=== PATIENT | female | born 1955 | race Caucasian/White ===

== ENCOUNTER 2016-11-10 22:26 | Observation (INO) | payer OTHER ==
[~2016-11-10] VITALS: Ht 162.6 cm; Wt 57.4 kg
--- NOTE | 2016-11-11 01:54 | ED CLINICAL REPORT ---
Clinical Report - Physicians/Mid Levels [facility] [address] [place] [address] 11/10/2016 22:27 Patient: LINDA SEPULVEDA V Time Seen: 22:51. Arrived- By private vehicle. Historian- patient. HISTORY OF PRESENT ILLNESS Chief Complaint: ABDOMINAL PAIN. At its maximum, severity described as 10 / 10. When seen in the E.D., severity described as 8 / 10. It is described as sharp and it is described as located in the upper abdomen and radiating to the upper back. This started today at about 8 PM and is still present. It was abrupt in onset and has been constant. The patient has had nausea. No vomiting or diarrhea. REVIEW OF SYSTEMS No chills, fever, sweats, calf pain or chest pain. No cough, difficulty breathing, pedal edema, palpitations or black stools. No bloody stools or urinary problems. She has had nausea. All systems otherwise negative, except as recorded above. PAST HISTORY PCP - Sunday. Problems: Ischemic colitis. Abdominal Pain. Abnormal EKG. Arrhythmia. Leukocytosis. Hypertension. UTI - Urinary Tract Infection. PVC - Premature Venticular Complex(s). Anxiety Reaction. Palpitations. Additional Surgeries: Ankle. Appendectomy. Colostomy. Tonsillectomy. Medications: Pradaxa Oral. Digoxin Oral. Allergies: Dilaudid. Moderate (hallucinations). SOCIAL HISTORY Never smoker. Occasional alcohol use. No drug use. She lives with spouse. Has good social support. FAMILY HISTORY Heart disease in first-degree relative (mother and sibling). ADDITIONAL NOTES The nursing notes have been reviewed. PHYSICAL EXAM Vital Signs: 11/10/2016 22:45 BP: 197/81. HR: 63. RR: 20. O2 saturation: 100%. Temp: 97.4 F. Pain level now: 10/10. Have been reviewed. Appearance: Alert. Appears to be in pain. Eyes: Pupils equal, round and reactive to light. ENT: Pharynx normal. Neck: Normal inspection. Neck supple. CVS: Normal heart rate and rhythm. Heart sounds normal. Respiratory: No respiratory distress. Breath sounds normal. Abdomen: Soft. Moderate tenderness in the right upper quadrant. Bowel sounds normal. No organomegaly. No mass. Surgical scar present. (left sided colostomy pink with brown stool in bag). Back: Normal inspection. No CVA tenderness. Skin: Skin warm and dry. Normal skin color. Normal skin turgor. Extremities: Extremities exhibit normal ROM. No calf tenderness. No lower extremity edema. LABS, X-RAYS, AND EKG Abdominal Sonogram: Gallstones are present. (discussed with the US tech). No gallbladder wall thickening, pericholecystic fluid, dilated common duct or common duct stones. Laboratory Tests: CBC w Diff: (DESTINY: 11/10/2016 23:00) ( MsgRcvd 11/10/2016 23:31) Final results Test Result Flag Units (Reference) WHITE BLOOD COUNT 9.5 K/uL (4.5-11.5) RED BLOOD COUNT 4.36 M/uL (4.00-5.20) HEMOGLOBIN 13.8 gm/dL (12.0-16.0) HEMATOCRIT 40.4 % (36.0-46.0) MEAN CELL VOLUME 93 fL (80-100) MEAN CORPUSCULAR HGB 32 pg (26-34) MEAN CORPUSCULAR HGB CONC 34 g/dL (31-37) RED CELL DISTRIBUTION WIDTH 13.9 % (11.6-14.8) PLATELET COUNT 315 K/uL (150-400) NEUTROPHIL % 69.8 % (50-75) LYMPH % 16.8 L % (25-40) MONO % 10.2 % (3-14) EOSINOPHIL % 2.9 % (0-4) BASOPHIL % 0.3 % (0-2) PT with INR: (DESTINY: 11/10/2016 23:00) ( MsgRcvd 11/10/2016 23:19) Final results Test Result Flag Units (Reference) INR 1.1 (0.8-1.2) Low Intensity Therapy: INR 1.5-2.0 PT range 18.5-23.1Mod.Intensity Therapy: INR 2.0-3.0 PT range 23.1-31.5High Intensity Therapy: INR 2.5-3.5 PT range 27.4-35.5High Intensity Therapy 2: INR 3.0-4.0 PT range 31.5-39.3 APTT 51 H SECONDS (24-34) Digoxin Level: ([place]STINY: 11/10/2016 23:00) ( [facility] [place] Final results Test Result Flag Units (Reference) DIGOXIN 0.9 ng/mL (0.9-2.0) CMP: (DESTINY: 11/10/2016 23:00) ( MsgRcvd 11/10/2016 23:29) Final results Test Result Flag Units (Reference) GLUCOSE 122 H mg/dL (70-110) BUN 11 mg/dL (7-18) CREATININE 1.0 mg/dL (0.6-1.3) Estimated GFR >60 mL/min Estimated GFR- >60 mL/min Note: Persistent reduction over 3 months in eGFR<60 mL/min/1.73 m2 defines CKD. Patients with eGFR values>=60 mL/min/1.73 m2 may also have CKD if evidence ofpersistent proteinuria. Additional information may be foundat www.kidney.org. SODIUM 140 mmol/L (136-145) POTASSIUM 3.3 L mmol/L (3.5-5.1) CHLORIDE 102 mmol/L (98-107) CARBON DIOXIDE 23 mmol/L (21-32) CALCIUM 9.5 mg/dL (8.5-10.1) TOTAL PROTEIN 7.9 g/dL (6.4-8.2) ALBUMIN 3.6 g/dL (3.3-5.0) BILIRUBIN, TOTAL 0.9 mg/dL (0.0-1.0) ALKALINE PHOSPHATASE 208 H U/L (46-116) AST (SGOT) 183 H U/L (15-37) ALT (SGPT) 63 U/L (12-78) LIPASE 243 U/L (73-393) AMYLASE 82 U/L (25-115) Venous Blood Gas: (DESTINY: 11/10/2016 22:49) ( [facility] [place] 23:[place]) Final results Test Result Flag Units (Reference) FIO2 21 % (20-101) ABG MODE OF DELIVERY ROOM AIR VENOUS BLOOD GAS pH 7.599 H (7.31-7.41) VBG PCO2 24.5 L mmHg (41-51) VENOUS BG PO2 23.6 L mmHg (24.0-40.0) VENOUS BG HCO3 24.0 mmol/L (22.0-28.0) VENOUS BG TCO2 24.7 L mmol/L (25.0-29.0) VENOUS BG SATO2 54.5 % (40.0-70.0) . PROGRESS AND PROCEDURES Course of Care: Patient is stable. Consult obtained from surgery. Dr. Hastings. Case discussed. Phone consult only. Will see patient in the hospital. Patient/family counseled. Old medical records reviewed. Old records unavailable. Disposition: Admitted. Observation. CLINICAL IMPRESSION Cholelithiasis. (Electronically signed by Charlie Costa MD 11/11/2016 3:46)
--- NOTE | 2016-11-11 01:54 | ED CLINICAL REPORT ---
Clinical Report - Physicians/Mid Levels [facility] [address] [place] [address] 11/10/2016 22:27 Patient: LINDA SEPULVEDA V Time Seen: 22:51. Arrived- By private vehicle. Historian- patient. HISTORY OF PRESENT ILLNESS Chief Complaint: ABDOMINAL PAIN. At its maximum, severity described as 10 / 10. When seen in the E.D., severity described as 8 / 10. It is described as sharp and it is described as located in the upper abdomen and radiating to the upper back. This started today at about 8 PM and is still present. It was abrupt in onset and has been constant. The patient has had nausea. No vomiting or diarrhea. REVIEW OF SYSTEMS No chills, fever, sweats, calf pain or chest pain. No cough, difficulty breathing, pedal edema, palpitations or black stools. No bloody stools or urinary problems. She has had nausea. All systems otherwise negative, except as recorded above. PAST HISTORY PCP - Sunday. Problems: Ischemic colitis. Abdominal Pain. Abnormal EKG. Arrhythmia. Leukocytosis. Hypertension. UTI - Urinary Tract Infection. PVC - Premature Venticular Complex(s). Anxiety Reaction. Palpitations. Additional Surgeries: Ankle. Appendectomy. Colostomy. Tonsillectomy. Medications: Pradaxa Oral. Digoxin Oral. Allergies: Dilaudid. Moderate (hallucinations). SOCIAL HISTORY Never smoker. Occasional alcohol use. No drug use. She lives with spouse. Has good social support. FAMILY HISTORY Heart disease in first-degree relative (mother and sibling). ADDITIONAL NOTES The nursing notes have been reviewed. PHYSICAL EXAM Vital Signs: 11/10/2016 22:45 BP: 197/81. HR: 63. RR: 20. O2 saturation: 100%. Temp: 97.4 F. Pain level now: 10/10. Have been reviewed. Appearance: Alert. Appears to be in pain. Eyes: Pupils equal, round and reactive to light. ENT: Pharynx normal. Neck: Normal inspection. Neck supple. CVS: Normal heart rate and rhythm. Heart sounds normal. Respiratory: No respiratory distress. Breath sounds normal. Abdomen: Soft. Moderate tenderness in the right upper quadrant. Bowel sounds normal. No organomegaly. No mass. Surgical scar present. (left sided colostomy pink with brown stool in bag). Back: Normal inspection. No CVA tenderness. Skin: Skin warm and dry. Normal skin color. Normal skin turgor. Extremities: Extremities exhibit normal ROM. No calf tenderness. No lower extremity edema. LABS, X-RAYS, AND EKG Abdominal Sonogram: Gallstones are present. (discussed with the US tech). No gallbladder wall thickening, pericholecystic fluid, dilated common duct or common duct stones. Laboratory Tests: CBC w Diff: (DESTINY: 11/10/2016 23:00) ( MsgRcvd 11/10/2016 23:31) Final results Test Result Flag Units (Reference) WHITE BLOOD COUNT 9.5 K/uL (4.5-11.5) RED BLOOD COUNT 4.36 M/uL (4.00-5.20) HEMOGLOBIN 13.8 gm/dL (12.0-16.0) HEMATOCRIT 40.4 % (36.0-46.0) MEAN CELL VOLUME 93 fL (80-100) MEAN CORPUSCULAR HGB 32 pg (26-34) MEAN CORPUSCULAR HGB CONC 34 g/dL (31-37) RED CELL DISTRIBUTION WIDTH 13.9 % (11.6-14.8) PLATELET COUNT 315 K/uL (150-400) NEUTROPHIL % 69.8 % (50-75) LYMPH % 16.8 L % (25-40) MONO % 10.2 % (3-14) EOSINOPHIL % 2.9 % (0-4) BASOPHIL % 0.3 % (0-2) PT with INR: (DESTINY: 11/10/2016 23:00) ( MsgRcvd 11/10/2016 23:19) Final results Test Result Flag Units (Reference) INR 1.1 (0.8-1.2) Low Intensity Therapy: INR 1.5-2.0 PT range 18.5-23.1Mod.Intensity Therapy: INR 2.0-3.0 PT range 23.1-31.5High Intensity Therapy: INR 2.5-3.5 PT range 27.4-35.5High Intensity Therapy 2: INR 3.0-4.0 PT range 31.5-39.3 APTT 51 H SECONDS (24-34) Digoxin Level: (DESTINY: 11/10/2016 23:00) ( [facility] [place] 11/10/2016 23:29) Final results Test Result Flag Units (Reference) DIGOXIN 0.9 ng/mL (0.9-2.0) CMP: (DESTINY: 11/10/2016 23:00) ( MsgRcvd 11/10/2016 23:29) Final results Test Result Flag Units (Reference) GLUCOSE 122 H mg/dL (70-110) BUN 11 mg/dL (7-18) CREATININE 1.0 mg/dL (0.6-1.3) Estimated GFR >60 mL/min Estimated GFR- >60 mL/min Note: Persistent reduction over 3 months in eGFR<60 mL/min/1.73 m2 defines CKD. Patients with eGFR values>=60 mL/min/1.73 m2 may also have CKD if evidence ofpersistent proteinuria. Additional information may be foundat www.kidney.org. SODIUM 140 mmol/L (136-145) POTASSIUM 3.3 L mmol/L (3.5-5.1) CHLORIDE 102 mmol/L (98-107) CARBON DIOXIDE 23 mmol/L (21-32) CALCIUM 9.5 mg/dL (8.5-10.1) TOTAL PROTEIN 7.9 g/dL (6.4-8.2) ALBUMIN 3.6 g/dL (3.3-5.0) BILIRUBIN, TOTAL 0.9 mg/dL (0.0-1.0) ALKALINE PHOSPHATASE 208 H U/L (46-116) AST (SGOT) 183 H U/L (15-37) ALT (SGPT) 63 U/L (12-78) LIPASE 243 U/L (73-393) AMYLASE 82 U/L (25-115) Venous Blood Gas: (DESTINY: 11/10/2016 22:49) ( [facility] 11/10/2016 23:00) Final results Test Result Flag Units (Reference) FIO2 21 % (20-101) ABG MODE OF DELIVERY ROOM AIR VENOUS BLOOD GAS pH 7.599 H (7.31-7.41) VBG PCO2 24.5 L mmHg (41-51) VENOUS BG PO2 23.6 L mmHg (24.0-40.0) VENOUS BG HCO3 24.0 mmol/L (22.0-28.0) VENOUS BG TCO2 24.7 L mmol/L (25.0-29.0) VENOUS BG SATO2 54.5 % (40.0-70.0) . PROGRESS AND PROCEDURES Course of Care: Patient is stable. Consult obtained from surgery. Dr. Hastings. Case discussed. Phone consult only. Will see patient in the hospital. Patient/family counseled. Old medical records reviewed. Old records unavailable. Disposition: Admitted. Observation. CLINICAL IMPRESSION Cholelithiasis. (Electronically signed by Charlie Costa MD 11/11/2016 3:46)
--- NOTE | 2016-11-11 01:55 | ED NURSING NOTES ---
Clinical Report - Nurses [facility] [address] [place] [address] 11/10/2016 22:27 Patient: LINDA SEPULVEDA V TRIAGE Triage time 22:42. Acuity: LEVEL 3. Chief Complaint: ABDOMINAL PAIN. --22:45 TonerickaB, R.N. 22:45 11/10/16. BP: 197/81. HR: 63. RR: 20. O2 saturation: 100%. Temp: 97.4 F. Pain level now: 05/26. --22:45 TonyaB, R.N. Weight: 57.1 kg. Height/Length: 64 inches. BMI: 21.6. --22:43 TonyaB, R.N. Medications Digoxin Oral. --22:42 LibbyB R.N. Pradaxa Oral. --22:43 TonyaB, R.N. Allergies Dilaudid. Moderate (hallucinations) --22:42 TonyaB, R.N. History Arrived by private vehicle. Historian: patient. Accompanied by family. This started just prior to arrival. ( pt states that abd pain started just prior to arrival). She has had nausea. Last oral intake by patient was snack (20 minutes). Treatment RD SCIENTIST: None. PAST MEDICAL HX: Immunizations: up-to-date. The patient is post-menopausal. SOCIAL HX: Never smoker. Occasional alcohol use. No drug use. No recent travel. No infectious disease exposure. No known contact with a sick individual. SELF HARM ASSESSMENT: A self harm assessment was performed. The patient answered "no" to the question "Have you recently felt down, depressed, or hopeless?", "Have you noticed less interest or pleasure in doing things?", "Do you have thoughts of harming or killing yourself?", "Are you here because you tried to hurt yourself?", "Have you ever tried to hurt yourself before today?", "Have you recently had thoughts about harming or killing others?" and "Do you have any dangerous items in your possession?". FALL RISK ASSESSMENT: Fall risk assessment completed. No fall risk identified. NUTRITIONAL RISK ASSESSMENT: The nutritional risk assessment revealed no deficiencies. FUNCTIONAL ASSESSMENT: Functional assessment: no impairments noted. LEARNING NEEDS ASSESSMENT: The learning needs assessment revealed no barriers. SKIN INTEGRITY ASSESSMENT: Skin integrity risk assessment completed. No skin integrity risk identified. --22:45 Dora Austin. ADDITIONAL SURGERIES: Ankle. Colostomy. --22:43 Dora Austin. Interventions ID band on patient. To treatment room. --22:45 Dora Austin. PHYSICAL ASSESSMENT ( pt has ostomy to [facility]). GENERAL / NEURO / PSYCH: Alert. Oriented X 4. Appears in pain. HEENT: Mucous membranes are pink. RESPIRATORY: Respirations not labored. Breath sounds within normal limits. CVS: Normal sinus rhythm noted. Capillary refill less than 2 seconds. GI / : The patient has had nausea. Abdomen soft. SKIN: Skin is warm and dry. --22:46 Dora Austin. Ambulatory to room. --22:46 Dora Austin. NURSING PROGRESS NOTES Patient identifiers checked. Call light placed in reach. Side rails up x 1. Bed placed in lowest position. Brakes of bed on. --22:46 Loni AustinN. 22:56 11/10/2016 Site #1 started via IV in the right antecubital space with an 20g angiocath, with aseptic technique and good blood return; one attempt. Blood drawn: rainbow set. Labeled in the presence of the patient and sent to the lab. Saline lock flushed. --22:56 Geovanna R.N. 00:12 11/11/2016 Started bag #1 1000 mL IV Fluids IV NS (Saline); at 1000 mL/hr over 1 hour(s) via site #1 via IV pump. Allergies verified and confirmed 5 rights. IV patency established. IV site checked: no pain, redness, or swelling. IV flushed thoroughly pre- and post-medication administration. --00:12 Neelam Austin.N. 00:13 11/11/2016 Zofran (Ondansetron HCl) IVP 4 mg given over 2 minute(s) via site #1. Allergies verified and confirmed 5 rights. IV patency established. IV site checked: no pain, redness, or swelling. IV flushed thoroughly pre- and post-medication administration. IVP given by RN. --00:13 Fausto Austin 00:13 11/11/2016 Morphine IVP 4 mg given over 2 minute(s) via site #1. Allergies verified, confirmed 5 rights and sedative warning given to the patient. IV patency established. IV site checked: no pain, redness, or swelling. IV flushed thoroughly pre- and post-medication administration. IVP given by RN. --00:13 Fausto Austin Patient transported to radiology by stretcher. --00:14 Fausto Austin 01:20 11/11/2016 IV Fluids IV NS Discontinued: bag #1 completed. Total amount infused: 1000 mL. IV patency established. IV site checked: no pain, redness, or swelling. IV flushed thoroughly. --01:20 Inga Parmar R.N. DISPOSITION / DISCHARGE Admitted. Transported via stretcher. Report was given to a nurse via a phone call. Report included patient's care, treatment, medications, reviewed medication reconcilliation, and condition (including any recent changes or anticipated changes). All questions were answered. Report was acknowledged and care was transferred. --02:11 Fausto Austin 02:16 11/11/16. BP: 143/79. HR: 71. RR: 18. O2 saturation: 100%. Temp: deferred. Pain level now: 09/26. --02:16 Fausto Austin Departure time: 02:17. --02:17 Fausto Austin Locked/Released at 11/11/2016 2:17 by Fausto Austin
--- NOTE | 2016-11-11 01:55 | ED ORDER SUMMARY ---
..... Patient: LINDA SEPULVEDA V OrderSheet [facility] VisitID: [id number] [address] [place] [address] 61y, F Registration Date/Time: 11/10/2016 ORDER SHEET Weight: 57.1 kg Allergies: Dilaudid GENERAL ORDERS: Venous Blood Gas (G) Urgent (22:49 11/10/2016 AMcQuoid ER Tech1 verbal order read back to Sangeeta CHU) (Ack 22:51 AMcQuoid ER Tech1) (22:56 TBowen R.N.) CBC w Diff Urgent (22:50 11/10/2016 Sangeeta CHU) (Ack 22:51 AMcGwenoid ER Tech1) (22:56 TBowen R.N.) CMP Urgent (22:50 11/10/2016 Sangeeta CHU) (Ack 22:51 AMcGwenoid ER Tech1) (22:56 TBowen R.N.) Amylase Urgent (22:50 11/10/2016 Sangeeta CHU) (Ack 22:51 AMcQuoid ER Tech1) (22:56 TBowen R.N.) Lipase Urgent (22:50 11/10/2016 Sangeeta CHU) (Ack 22:51 AMcQuoid ER Tech1) (22:56 TBowen R.N.) UA-Culture if indicated Urgent (22:50 11/10/2016 Sangeeta CHU) (Ack 22:51 AMcQuoid ER Tech1) (1:56 TBowen R.N.) PT with INR Urgent (22:51 11/10/2016 Sangeeta CHU) (Ack 22:51 AMcQuoid ER Tech1) (22:56 TBowen R.N.) PTT Urgent (22:51 11/10/2016 Sangeeta CHU) (Ack 22:51 Sudhaoid ER Tech1) (22:56 TBowen R.N.) Digoxin Level Urgent (22:52 11/10/2016 Sangeeta CHU) (Ack 22:53 AMcQuoid ER Tech1) (22:56 TBowen R.N.) US Abdomen Limited (No) Urgent (00:04 11/11/2016 Sangeeta CHU) (Ack 0:07 AMcQuoid ER Tech1) (1:20 EInderbitzen R.N.) Abdomen 1V (upright) Urgent (00:06 11/11/2016 Sangeeta CHU) (Ack 0:07 AMcQuoid ER Tech1) (0:32 GUnger) MEDICATION ORDERS: IV FLUIDS: IV Saline Lock (22:50 11/10/2016 Sangeeta CHU) (22:56 TBowen R.N.) IV NS : initial bolus 1000 mL (1000 mL/hr), then 150 mL/hr for 4h (NOW); Urgent (23:59 11/10/2016 Sangeeta CHU) (0:12 TBowen R.N.) Zofran IV 4 mg (NOW) (00:00 11/11/2016 Sangeeta CHU) (0:13 TBowen R.N.) Morphine IV 4 mg (HIGH ALERT MEDICATION, NOW) (00:02 11/11/2016 Sangeeta CHU) (0:13 TBowen R.N.) ORDER SHEET NOTES: [Electronically signed by Libby Lucio R.N. (02:17 11/11/2016)] [Electronically signed by Libby Lucio R.N. (02:17 11/11/2016)] [Electronically signed by Charlie Costa MD (03:46 11/11/2016)] [Electronically locked/signed by Libby Lucio R.N. (02:17 11/11/2016)]
--- NOTE | 2016-11-11 01:55 | ED ORDER SUMMARY ---
..... Patient: LINDA SEPULVEDA V OrderSheet [facility] VisitID: [id number] [address] [place] [address] 61y, F Registration Date/Time: 11/10/2016 ORDER SHEET Weight: 57.1 kg Allergies: Dilaudid GENERAL ORDERS: Venous Blood Gas (G) Urgent (22:49 11/10/2016 AMcQuoid ER Tech1 verbal order read back to Sangeeta CUH) (Ack 22:51 AMcQuoid ER Tech1) (22:56 TBowen R.N.) CBC w Diff Urgent (22:50 11/10/2016 Sangeeta CHU) (Ack 22:51 AMcGwenoid ER Tech1) (22:56 TBowen R.N.) CMP Urgent (22:50 11/10/2016 Sangeeta CHU) (Ack 22:51 AMcGwenoid ER Tech1) (22:56 TBowen R.N.) Amylase Urgent (22:50 11/10/2016 Sangeeta CHU) (Ack 22:51 AMcQuoid ER Tech1) (22:56 TBowen R.N.) Lipase Urgent (22:50 11/10/2016 Sangeeta CHU) (Ack 22:51 AMcQuoid ER Tech1) (22:56 TBowen R.N.) UA-Culture if indicated Urgent (22:50 11/10/2016 Sangeeta CHU) (Ack 22:51 AMcQuoid ER Tech1) (1:56 TBowen R.N.) PT with INR Urgent (22:51 11/10/2016 Sangeeta CHU) (Ack 22:51 AMcQuoid ER Tech1) (22:56 TBowen R.N.) PTT Urgent (22:51 11/10/2016 Sangeeta CHU) (Ack 22:51 Sudhaoid ER Tech1) (22:56 TBowen R.N.) Digoxin Level Urgent (22:52 11/10/2016 Sangeeta CHU) (Ack 22:53 AMcQuoid ER Tech1) (22:56 TBowen R.N.) US Abdomen Limited (No) Urgent (00:04 11/11/2016 Sangeeta CHU) (Ack 0:07 AMcQuoid ER Tech1) (1:20 EInderbitzen R.N.) Abdomen 1V (upright) Urgent (00:06 11/11/2016 Sangeeta CHU) (Ack 0:07 AMcQuoid ER Tech1) (0:32 GUnger) MEDICATION ORDERS: IV FLUIDS: IV Saline Lock (22:50 11/10/2016 Sangeeta CHU) (22:56 TBowen R.N.) IV NS : initial bolus 1000 mL (1000 mL/hr), then 150 mL/hr for 4h (NOW); Urgent (23:59 11/10/2016 Sangeeta CHU) (0:12 TBowen R.N.) Zofran IV 4 mg (NOW) (00:00 11/11/2016 Sangeeta CHU) (0:13 TBowen R.N.) Morphine IV 4 mg (HIGH ALERT MEDICATION, NOW) (00:02 11/11/2016 Sangeeta CHU) (0:13 TBowen R.N.) ORDER SHEET NOTES: [Electronically signed by Libby Lucio R.N. (02:17 11/11/2016)] [Electronically signed by Libby Lucio R.N. (02:17 11/11/2016)] [Electronically signed by Charlie Costa MD (03:46 11/11/2016)] [Electronically locked/signed by Libby Lucio R.N. (02:17 11/11/2016)]
--- NOTE | 2016-11-11 01:55 | ED NURSING NOTES ---
Clinical Report - Nurses [facility] [address] [place] [address] 11/10/2016 22:27 Patient: LINDA SEPULVEDA V TRIAGE Triage time 22:42. Acuity: LEVEL 3. Chief Complaint: ABDOMINAL PAIN. --22:45 TonerickaB, R.N. 22:45 11/10/16. BP: 197/81. HR: 63. RR: 20. O2 saturation: 100%. Temp: 97.4 F. Pain level now: 05/26. --22:45 TonyaB, R.N. Weight: 57.1 kg. Height/Length: 64 inches. BMI: 21.6. --22:43 TonyaB, R.N. Medications Digoxin Oral. --22:42 LibbyB R.N. Pradaxa Oral. --22:43 TonyaB, R.N. Allergies Dilaudid. Moderate (hallucinations) --22:42 TonyaB, R.N. History Arrived by private vehicle. Historian: patient. Accompanied by family. This started just prior to arrival. ( pt states that abd pain started just prior to arrival). She has had nausea. Last oral intake by patient was snack (20 minutes). Treatment SERVICE MANAGER: None. PAST MEDICAL HX: Immunizations: up-to-date. The patient is post-menopausal. SOCIAL HX: Never smoker. Occasional alcohol use. No drug use. No recent travel. No infectious disease exposure. No known contact with a sick individual. SELF HARM ASSESSMENT: A self harm assessment was performed. The patient answered "no" to the question "Have you recently felt down, depressed, or hopeless?", "Have you noticed less interest or pleasure in doing things?", "Do you have thoughts of harming or killing yourself?", "Are you here because you tried to hurt yourself?", "Have you ever tried to hurt yourself before today?", "Have you recently had thoughts about harming or killing others?" and "Do you have any dangerous items in your possession?". FALL RISK ASSESSMENT: Fall risk assessment completed. No fall risk identified. NUTRITIONAL RISK ASSESSMENT: The nutritional risk assessment revealed no deficiencies. FUNCTIONAL ASSESSMENT: Functional assessment: no impairments noted. LEARNING NEEDS ASSESSMENT: The learning needs assessment revealed no barriers. SKIN INTEGRITY ASSESSMENT: Skin integrity risk assessment completed. No skin integrity risk identified. --22:45 Dora Austin. ADDITIONAL SURGERIES: Ankle. Colostomy. --22:43 Dora Austin. Interventions ID band on patient. To treatment room. --22:45 Dora Austin. PHYSICAL ASSESSMENT ( pt has ostomy to [facility]). GENERAL / NEURO / PSYCH: Alert. Oriented X 4. Appears in pain. HEENT: Mucous membranes are pink. RESPIRATORY: Respirations not labored. Breath sounds within normal limits. CVS: Normal sinus rhythm noted. Capillary refill less than 2 seconds. GI / : The patient has had nausea. Abdomen soft. SKIN: Skin is warm and dry. --22:46 Dora Austin. Ambulatory to room. --22:46 Dora Austin. NURSING PROGRESS NOTES Patient identifiers checked. Call light placed in reach. Side rails up x 1. Bed placed in lowest position. Brakes of bed on. --22:46 Loni AustinN. 22:56 11/10/2016 Site #1 started via IV in the right antecubital space with an 20g angiocath, with aseptic technique and good blood return; one attempt. Blood drawn: rainbow set. Labeled in the presence of the patient and sent to the lab. Saline lock flushed. --22:56 Geovanna R.N. 00:12 11/11/2016 Started bag #1 1000 mL IV Fluids IV NS (Saline); at 1000 mL/hr over 1 hour(s) via site #1 via IV pump. Allergies verified and confirmed 5 rights. IV patency established. IV site checked: no pain, redness, or swelling. IV flushed thoroughly pre- and post-medication administration. --00:12 Neelam Austin.N. 00:13 11/11/2016 Zofran (Ondansetron HCl) IVP 4 mg given over 2 minute(s) via site #1. Allergies verified and confirmed 5 rights. IV patency established. IV site checked: no pain, redness, or swelling. IV flushed thoroughly pre- and post-medication administration. IVP given by RN. --00:13 Fausto Austin 00:13 11/11/2016 Morphine IVP 4 mg given over 2 minute(s) via site #1. Allergies verified, confirmed 5 rights and sedative warning given to the patient. IV patency established. IV site checked: no pain, redness, or swelling. IV flushed thoroughly pre- and post-medication administration. IVP given by RN. --00:13 Fausto Austin Patient transported to radiology by stretcher. --00:14 Fausto Austin 01:20 11/11/2016 IV Fluids IV NS Discontinued: bag #1 completed. Total amount infused: 1000 mL. IV patency established. IV site checked: no pain, redness, or swelling. IV flushed thoroughly. --01:20 Inga Parmar R.N. DISPOSITION / DISCHARGE Admitted. Transported via stretcher. Report was given to a nurse via a phone call. Report included patient's care, treatment, medications, reviewed medication reconcilliation, and condition (including any recent changes or anticipated changes). All questions were answered. Report was acknowledged and care was transferred. --02:11 Fausto Austin 02:16 11/11/16. BP: 143/79. HR: 71. RR: 18. O2 saturation: 100%. Temp: deferred. Pain level now: 09/26. --02:16 Fausto Austin Departure time: 02:17. --02:17 Fausto Austin Locked/Released at 11/11/2016 2:17 by Fausto Austin
[2016-11-11 02:31] VITALS: BP 148/70
[2016-11-11] MEDS ORDERED: DIGOXIN0.125 MG PO (03:22)
[2016-11-11] MEDS ORDERED: PRADAXA150 MG PO (03:22)
--- NOTE | 2016-11-11 03:34 | NUR ---
Pt arrived 0215 from ED. Stood from stretcher to bed. c/o 5/10 pain to upper abd. Med w/Demerol 25mg which was effective. Admit hx done w/pt. Colostomy patent for soft brown BM. IV LR hung. No nausea. IS given. O2 & SCDs placed per order. VSS. NPO.
--- NOTE | 2016-11-11 03:47 | ED MED RECONCILIATION SUMMARY ---
Patient: LINDA SEPULVEDA V Medication Reconciliation Report [facility] VisitID: [id number] [address] [place] [address] 61y, F Registration Date/Time: 11/10/2016 Weight: 57.1 kg Height/Length: 64 in. BMI: 21.6 ALLERGIES: Dilaudid The patient's Home Medications are listed below: THE FOLLOWING MEDICATIONS NEED TO BE RECONCILED: Digoxin Oral Pradaxa Oral The source(s) of the original Home Medication information: Not obtained. The following Medications were given to the patient in the Emergency Department: IV NS IV Fluids bolus 0, then 1000 mL/hr, administered: 11/11/2016 12:12:00 AM Zofran [IVP] IVP 4 mg, administered: 11/11/2016 12:13:00 AM Morphine [IVP] IVP 4 mg, administered: 11/11/2016 12:13:00 AM The following Medications were prescribed to the patient: None.
--- NOTE | 2016-11-11 03:47 | ED DISCHARGE INSTRUCTIONS ---
Patient: LINDA SEPULVEDA V General Instructions [facility] VisitID: [id number] [address] [place] [address] 61y, F Registration Date/Time: 11/10/2016 Cholelithiasis. ADDITIONAL INFORMATION GallstonesWith Biliary Colic [Confirmed Dx] The abdominal pain that you have today is due to spasm of the gallbladder. The gallbladder is a small sac under the liver which stores and releases bile. Bile is a fluid that aids in the digestion of fat. A gallstone may form inside the gallbladder and block the flow of bile fluid. This causes mild to severe crampy pain in the mid or right upper abdomen with nausea and vomiting. Home Care: Rest in bed and follow a clear liquid diet until feeling better. If pain or nausea medicine was given to help with your symptoms, take these as directed. Fat in your diet makes the gallbladder contract and may cause increased pain. Therefore, avoid fat in your diet over the next two days and follow a low-fat diet after that. If you are overweight, a low-fat diet will also help you lose weight. Follow Up with your doctor. There is a 50% chance that you will have another episode of pain from your gallstones during the next 2 years. Removal of the gallbladder is the treatment of choice to prevent this. Schedule an appointment with your own doctor during the next week to discuss the treatment options. Get Prompt Medical Attention if any of the following occur: Pain gets worse or moves to the right lower abdomen Repeated vomiting Swelling of the abdomen Pain lasts over 6 hours Fever of 100.4F (38C) or higher, or as directed by your healthcare provider Weakness, dizziness or fainting Dark urine or light colored stools Yellow color of the skin or eyes Chest, arm, back, neck or jaw pain You have been given the following additional information: Biliary Colic With Gallstone (Confirmed) (Electronically signed by Charlie Costa MD 11/11/2016 3:46)
--- NOTE | 2016-11-11 03:47 | ED MED RECONCILIATION SUMMARY ---
Patient: LINDA SEPULVEDA V Medication Reconciliation Report [facility] VisitID: [id number] [address] [place] [address] 61y, F Registration Date/Time: 11/10/2016 Weight: 57.1 kg Height/Length: 64 in. BMI: 21.6 ALLERGIES: Dilaudid The patient's Home Medications are listed below: THE FOLLOWING MEDICATIONS NEED TO BE RECONCILED: Digoxin Oral Pradaxa Oral The source(s) of the original Home Medication information: Not obtained. The following Medications were given to the patient in the Emergency Department: IV NS IV Fluids bolus 0, then 1000 mL/hr, administered: 11/11/2016 12:12:00 AM Zofran [IVP] IVP 4 mg, administered: 11/11/2016 12:13:00 AM Morphine [IVP] IVP 4 mg, administered: 11/11/2016 12:13:00 AM The following Medications were prescribed to the patient: None.
--- NOTE | 2016-11-11 03:47 | ED MAR SUMMARY ---
..... Medication Administration Record [facility] [address] [place] [address] Patient: LINDA SEPULVEDA V Visit ID: [id number] 61y, F Weight: 57.1 kg Height/Length: 64 in BMI: 21.6 ALLERGIES: Dilaudid Start 00:12 11/11/2016 Geovanna RYimi, Stop 01:20 11/11/2016 Inga Parmar R.N. Medication Administered: IV NS (SALINE), Dose: IV Fluids over 1 hour(s), Rate: 1000 mL/hr, Dispensed: 1000 mL bag, Site: #1 right AC. Medication Ordered: IV NS : initial bolus 1000 mL (1000 mL/hr), then 150 mL/hr for 4h (NOW); Urgent. Given 00:11/11/2016 Fausto Austin Medication Administered: ZOFRAN [IVP] (ONDANSETRON HCL), Dose: 4 mg IVP over 2 minute(s), Site: #1 right AC. Medication Ordered: Zofran IV 4 mg (NOW). Given 00:11/11/2016 Fausto Austin Medication Administered: MORPHINE [IVP], Dose: 4 mg IVP over 2 minute(s), Site: #1 right AC. Medication Ordered: Morphine IV 4 mg (HIGH ALERT MEDICATION, NOW).
--- NOTE | 2016-11-11 03:47 | ED MAR SUMMARY ---
..... Medication Administration Record [facility] [address] [place] [address] Patient: LINDA SEPULVEDA V Visit ID: [id number] 61y, F Weight: 57.1 kg Height/Length: 64 in BMI: 21.6 ALLERGIES: Dilaudid Start 00:12 11/11/2016 Geovanna RYimi, Stop 01:20 11/11/2016 Inga Parmar R.N. Medication Administered: IV NS (SALINE), Dose: IV Fluids over 1 hour(s), Rate: 1000 mL/hr, Dispensed: 1000 mL bag, Site: #1 right AC. Medication Ordered: IV NS : initial bolus 1000 mL (1000 mL/hr), then 150 mL/hr for 4h (NOW); Urgent. Given 00:11/11/2016 Fausto Austin Medication Administered: ZOFRAN [IVP] (ONDANSETRON HCL), Dose: 4 mg IVP over 2 minute(s), Site: #1 right AC. Medication Ordered: Zofran IV 4 mg (NOW). Given 00:11/11/2016 Fausto Austin Medication Administered: MORPHINE [IVP], Dose: 4 mg IVP over 2 minute(s), Site: #1 right AC. Medication Ordered: Morphine IV 4 mg (HIGH ALERT MEDICATION, NOW).
--- NOTE | 2016-11-11 03:47 | ED DISCHARGE INSTRUCTIONS ---
Patient: LINDA SEPULVEDA V General Instructions [facility] VisitID: [id number] [address] [place] [address] 61y, F Registration Date/Time: 11/10/2016 Cholelithiasis. ADDITIONAL INFORMATION GallstonesWith Biliary Colic [Confirmed Dx] The abdominal pain that you have today is due to spasm of the gallbladder. The gallbladder is a small sac under the liver which stores and releases bile. Bile is a fluid that aids in the digestion of fat. A gallstone may form inside the gallbladder and block the flow of bile fluid. This causes mild to severe crampy pain in the mid or right upper abdomen with nausea and vomiting. Home Care: Rest in bed and follow a clear liquid diet until feeling better. If pain or nausea medicine was given to help with your symptoms, take these as directed. Fat in your diet makes the gallbladder contract and may cause increased pain. Therefore, avoid fat in your diet over the next two days and follow a low-fat diet after that. If you are overweight, a low-fat diet will also help you lose weight. Follow Up with your doctor. There is a 50% chance that you will have another episode of pain from your gallstones during the next 2 years. Removal of the gallbladder is the treatment of choice to prevent this. Schedule an appointment with your own doctor during the next week to discuss the treatment options. Get Prompt Medical Attention if any of the following occur: Pain gets worse or moves to the right lower abdomen Repeated vomiting Swelling of the abdomen Pain lasts over 6 hours Fever of 100.4F (38C) or higher, or as directed by your healthcare provider Weakness, dizziness or fainting Dark urine or light colored stools Yellow color of the skin or eyes Chest, arm, back, neck or jaw pain You have been given the following additional information: Biliary Colic With Gallstone (Confirmed) (Electronically signed by Charlie Costa MD 11/11/2016 3:46)
--- NOTE | 2016-11-11 06:18 | NUR ---
0510 Pt was med again w/Demerol. Awoke in 04/26 pain to upper abd. Colostomy emptied for a lot of flatus & thick liq BM. 0615 Demerol effective, as pt now sleeping. Labs have been drawn.
[2016-11-11 06:30] VITALS: BP 165/92
--- NOTE | 2016-11-11 06:55 | DIAGNOSTIC IMAGING REPORT ---
PROCEDURE: US ABDOMEN ULTRASOUND-LIMITED INDICATION: RUQ PAIN, initial encounter TECHNIQUE: Brumfield scale and color Doppler sonographic images of the abdomen were obtained. COMPARISON: Abdominal ultrasound and CT abdomen/pelvis 07/10/2014 and hepatobiliary scan 07/11/2014. FINDINGS: Previous ultrasound demonstrated gallbladder sludge. There are now multiple non mobile shadowing gallbladder foci present. There is no gallbladder wall thickening or pericholecystic fluid. Normal CBD measures 4.4 mm. Dental Appliance Repairer indicates a positive sonographic Noriega's sign. Normal liver and pancreas. Aorta and IVC are patent. Normal hepatopetal flow. Normal right kidney measures 11.1 cm. IMPRESSION: 1. Multiple gallbladder non mobile shadowing foci suggestive of calculi with positive sonographic Noriega's sign. Gallbladder sludge or mass are less likely. 2. Results discussed with Dr. Hastings
--- NOTE | 2016-11-11 08:22 | DIAGNOSTIC IMAGING REPORT ---
PROCEDURE: XR ABDOMEN 1 VIEW INDICATION: ABDOMINAL PAIN TECHNIQUE: AP upright view. COMPARISON: None. FINDINGS: Left lower quadrant ostomy. Bowel gas pattern is normal. No masses or unusual calcifications. Osseous structures are unremarkable. IMPRESSION: 1. Nonspecific bowel gas pattern 2. Left lower quadrant ostomy
--- NOTE | 2016-11-11 08:35 | NUR ---
RECEIVED PT IN BED, AWAKE, ALERT, ORIENTED, COHERENT, COOPERATIVE. V/S TAKEN AND RECORDED. ASSESSMENT DONE. PT DENIES NAUSEA AND VOMITING AT THIS TIME, ASKED ABOUT HER PAIN " I AM OK RIGHT NOW" PT STATES. MAINTAINED ON NPO. EXPLAINED ABOUT PAIN MEDICATION, PT UNDERSTOOD. DUE MEDS GIVEN. WAITING FOR DR GARCIA TO SEE PT. PT UNDERSTOOD. NEEDS ATTENDED.
--- NOTE | 2016-11-11 10:41 | NUR ---
PT IS ASLEEP BUT EASILY AROUSED. DENIES NAUSEA, PAIN " I AM OK" PT STATES. WAITING FOR DR GARCIA TO CALL ME BACK REGARDING DIET AND PLAN.
[2016-11-11 10:52] VITALS: BP 132/74
--- NOTE | 2016-11-11 10:53 | NUR ---
NUTRITION NOTE: Pt admitted with dx/o gallstones and biliary colic. Pt is currently NPO, surgery consult pending. RD to follow up with complete assessment per protocol.
--- NOTE | 2016-11-11 11:40 | NUR ---
PT WENT DOWN TO RADIOLOGY FOR GI SERIES. ASSISTED BY MS CORDON TO THE LOBBY VIA WHEELCHAIR.
--- NOTE | 2016-11-11 12:20 | NUR ---
PT IS BACK IN BED, ASLEEP BUT EASILY AROUSED FROM RADIOLOGY. WAITING FOR DR MENDOZA TO SEE PT.
--- NOTE | 2016-11-11 12:51 | HISTORY AND PHYSICAL ---
ADMITTED: 11/11/2016 CHIEF COMPLAINT: 1. Abdominal pain HISTORY OF PRESENT ILLNESS: The patient is a 61-year-old female who presented to the emergency department with progressive severe epigastric abdominal pain, nonradiating, localized, not associated with fever or chills, associated with nausea, but no vomiting. The patient states that this discomfort began approximately a day and a half prior to her admission and then worsened on the evening of her admission. The patient states that she has had abdominal pain in the past, but nothing similar to this. MEDICAL/SURGICAL HISTORY: Quite extensive. The patient has a history of having undergone repair of an ankle fracture at age 20, appendectomy at age 17, and tonsillectomy and adenoidectomy as a child. Her extensive medical history began in 2013, in which she initially had an upper gastrointestinal endoscopy, colonoscopy at [facility] for abdominal pain. Their only finding was a tubular adenoma of the colon. She began having a workup at that time including ultrasound of her gallbladder, which was unremarkable and a CT of her abdomen which showed splenic and kidney infarcts. The patient was admitted to [facility] in 11/2013 for abdominal pain and worsening sepsis. A colonoscopy showed biopsies consistent with patchy areas of ischemic colitis of her colon. The patient worsened and on 12/22/2013 underwent a diagnostic laparoscopy, lysis of abdominal adhesions, open laparotomy and resection of the distal portion of her transverse colon, descending colon, sigmoid colon, and a portion of her rectum. She also had a portion of her small bowel resected with primary handsewn anastomosis. Unfortunately, on postoperative day #5, she underwent exploratory laparotomy, lysis of adhesions and closure of an enteric leak. 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 PEG tube was to decompress the bowel. She was started on TPN and eventually the enterocutaneous fistula healed. The patient has had an extensive workup by Dr. Brand for her possible thromboembolic disease process to include a transthoracic echocardiogram, which showed a left ventricular function ejection fraction of 55% to 60%, grade 1 systolic dysfunction, trace mitral regurgitation, tricuspid regurgitation, patient's workup also included an antiphospholipid antibody study, which was negative, a cardiolipin antibody IgM, which was indeterminate, a prothrombin which was negative, HIV negative. Factor V Leiden was negative. Factor II DNA mutation was negative, heparin anti-10A was negative and the protein S and protein C were normal. JESUS was negative. She subsequently underwent a celiac panel including Gliadin antibody, IgA and IgG, T-transglutaminase IgA and endomysial antibody IgA as well. The patient also carries a diagnosis of anxiety and hypertension. The patient also had a PEG tube dysfunction, which eroded through the stomach and into the abdominal wall, requiring replacement. This was eventually removed and the PEG tube site closed. The patient carries a diagnosis of atrial fibrillation as well. MEDICATIONS: Includes: 1. Pradaxa 150 mg. BID 2. Digoxin .25 mg daily ALLERGIES: 1. DILAUDID CAUSES HALLUCINATIONS. SOCIAL HISTORY: She is . She has 1 son, 3 daughters who are alive and well. The patient does not smoke, drinks alcohol socially, at one time worked for [employer]. FAMILY HISTORY: Mother is age 88, history of myocardial infarction and hypertension. Father age, health, and whereabouts unknown. The patient has 2 brothers who are alive and well. No sisters. REVIEW OF SYSTEMS: G6, AB2, P4. The patient cannot remember her last menstrual period or her last Pap smear. She denies any recent chest pain, shortness of breath, orthopnea, claudication, lower extremity swelling, night sweats, fevers, chills, syncopal episodes, seizure activities or blackouts. Her bowel movements are normal. Her appetite is good. Denies any recent dysuria, hematuria, or pyuria. Remaining 12-point review of systems other than that elucidated, negative. PHYSICAL EXAMINATION: GENERAL: The patient appears to be awake, alert, conversant and does not appear to be in any acute distress. The patient states that she is no longer having any abdominal discomfort. VITAL SIGNS: Blood pressure 140/70, pulse 70, respirations 16, temperature 98.2. HEENT: Normocephalic, atraumatic. Pupils equal and reactive. No scleral icterus. External auditory canals clear: No nasal septal defect or discharge. Throat is clear, not injected. NECK: Supple. No JVD, carotid bruit or adenopathy. LUNGS: Clear. No rales, rhonchi, or wheezing. Room air O2 saturation 97%. HEART: Regular rhythm. No murmurs that I can appreciate. ABDOMEN: Nondistended. The patient has an infraumbilical incisional scar that appears to have been closed by secondary intention. Her colostomy on the right lower quadrant is functioning. She is tender to palpation in the epigastric region. No masses appreciable. EXTREMITIES: No pretibial or ankle edema. Full range of motion. NEUROLOGIC: The patient is grossly intact with no focal motor neurologic deficits. LYMPHATICS: No cervical, supraclavicular, axillary, or groin adenopathy. SKIN: Warm and dry with no peripheral cyanosis. LAB/IMAGING: On admission, white count 9.5, hemoglobin and hematocrit 13.8 and 40.4 respectively. The morning of evaluation, her white count 8.8, hemoglobin and hematocrit 12.9 and 38.2, respectively. Her electrolytes were all within normal limits. Her total bilirubin initially was 0.9, and it bumped up to 1.5. Her alkaline phosphatase was elevated at 208, bumped up to 210. Ultrasound of her gallbladder shows layering sludge and possible layering calculi of the gallbladder. IMPRESSION: 1. Probable symptomatic cholelithiasis, but would need to rule out peptic ulcer disease because of the location of the discomfort. The patient does have a hostile abdomen and would be very hesitant to take her to surgery at present. Also, the patient is on Pradaxa and would have to wait at least 48 hours before we contemplated surgery on her. PLAN: Upper GI series to rule out peptic ulcer disease. If negative, we will proceed with attempt at laparoscopic cholecystectomy on this patient. I have discussed the surgical technique with the patient as well as risks to include, but not exclusive of conversion to open procedure, damage to local structures, i.e., small bowel, large bowel, secondary to adhesions, damage to the common bile duct, retained stone, hemorrhage, transfusion, bile leak, just to name a few. The patient understands and all questions answered to her satisfaction at this particular time.
--- NOTE | 2016-11-11 13:09 | Progress Note ---
Subjective General Full consult dictated Patient is a 61 yo female who presented to the ER with 10/10 pain. Found to have gallstone. Being admitted for cholecystitis. Hx of vascular issues and on pradaxa will need 48 hrs to get out of her system. Currently doing better. I am consulting at the request of surgery to manage her medical issues.
--- NOTE | 2016-11-11 13:15 | DIAGNOSTIC IMAGING REPORT ---
PROCEDURE: XR UPPER GI WITH GASTROGRAFIN INDICATION: Abnormal gallbladder. Multiple prior surgeries. Assess for ulcer prior to cholecystectomy. TECHNIQUE: Double contrast study. Fluoroscopy time, one point a minutes; 680.79 mGy. 120 ml of gastrographin was ingested (water-soluble contrast utilized due to concern for radiographic imaging during surgery). 17 fluoroscopic images (including cinefluoroscopy). COMPARISON: Comparison is made abdominal ultrasound 11/11/2016. FINDINGS: Esophagus, stomach, and duodenum are normal. No evidence of ulcer IMPRESSION: 1. Normal upper GI. No evidence of ulcer.
--- NOTE | 2016-11-11 13:20 | NUR ---
SEEN AND EXAMINED BY DR MENDOZA DURING ROUNDS, WITH ORDERS MADE AND CARRIED OUT. PLAN OF CARE INFORMED PT.
[2016-11-11] MEDS ORDERED: LANOXIN0.25 MG PO (13:22)
--- NOTE | 2016-11-11 14:03 | CONSULTATION REPORT ---
DATE OF CONSULTATION: 11/11/2016 CHIEF COMPLAINT: 1. Abdominal pain HISTORY OF PRESENT ILLNESS: I was asked to evaluate the patient by Surgery regarding her abdominal pain and chronic medical problems. This is a 61-year-old female who presented to the emergency department with 10/10 pain in the right upper abdomen radiating to her back and it started about 8 p.m. on the day prior to admission and worsened throughout the day and night and then went to the emergency department in the middle of the night. MEDICAL/SURGICAL HISTORY: Medical history: Primary doctor is Dr. Brand. She has had medical problems including paroxysmal atrial fibrillation as well as ischemic colitis. She has also splenic infarcts noted on CT abdomen on 08/03/2013. Past surgeries: She has had appendectomy at age 17, ankle surgery at age 20, tonsillectomy, adenoidectomy, colonoscopy with polyps in 2013, EGD 10/2013, partial colectomy and colostomy with wound debridement 12/2013. PEG tube placement 12/2013 and fell out 01/2014. MEDICATIONS: 1. Multivitamin p.o. daily. 2. Pradaxa 150 mg b.i.d. 3. Digoxin 0.25 mg daily except for 1/2 pill 2 days per week. 4. She also has wound care supplies for her colostomy. ALLERGIES: 1. DILAUDID CAUSES HALLUCINATIONS. 2. PHENERGAN GIVES HER NAUSEA. CODE STATUS: FULL. SOCIAL HISTORY: She is . Employed [employer]. She likes horses and she does not take drugs, rare drinking and quit smoking in 1978. FAMILY HISTORY: Notable for heart disease in her mother and hypertension. There was a cousin with a heart attack at age 51. Brother had a heart attack at age 51 as well. REVIEW OF SYSTEMS: Denies fever, chills, sweats, calf pain, or chest pain. No cough, difficulty breathing, shortness of breath, or edema. She has increased gas at the moment in her abdomen and colostomy bag. Otherwise, her pain is much improved at this time without eating and she is feeling better overall, rest of her review of systems is negative. PHYSICAL EXAMINATION: GENERAL: She is an alert female who appears to be in no distress. VITAL SIGNS: Temperature 98.2, heart rate of 59, respirations 18, blood pressure 132/74, saturating 97% on room air. Extraocular movements intact. Pupils equal, round, and reactive to light. Oropharynx is clear with moist mucous membranes. NECK: Supple without lymphadenopathy. LUNGS: Clear to auscultation bilaterally. HEART: Regular rate and rhythm. No murmur. ABDOMEN: Soft. It is nontender, nondistended. She has got a colostomy on her left lower abdomen. GENITOURINARY: Deferred. RECTAL: Deferred. BREASTS: Deferred. NEUROLOGIC: Cranial nerves II-XII intact. Strength and sensation grossly intact. SKIN: Intact, warm and dry. LAB/IMAGING: White count of 8.8, hematocrit 38.2, and platelets of 312. INR of 1.1. Chemistry: Sodium 140, potassium 3.3, chloride of 102, HCO3 23, BUN of 11, creatinine 1.0, glucose 112, calcium of 9.5, total bilirubin 1.5, AST of 183, ALT 63, alkaline phosphatase of 210. Total protein 7.9, albumin 3.6, amylase of 82, lipase 184. Urinalysis is negative except for positive leukocyte esterase with 3-5 white blood cells on digoxin 0.9. She had an upper gastrointestinal series shows normal upper gastrointestinal. No evidence of ulcer. She has got nonspecific bowel gas pattern with a left lower quadrant colostomy bag and then ultrasound of her abdomen showed multiple gallbladder nonmobile shadowing foci suggestive of calculi with a positive Noriega sign. IMPRESSION/PLAN: This is a 61-year-old female who presents with abdominal pain, now resolved who has got a history of medical problems including ischemic colitis and atrial fibrillation. She is on Pradaxa for stroke prevention and she is going to be held on her Pradaxa for the next 48 hours to allow for surgery and cholecystectomy. Hopefully, will be able to have a laparoscopic cholecystectomy at that time. I will treat her with her digoxin at this time and otherwise monitor labs and will continue to follow with her medical problems.
[2016-11-11 14:25] VITALS: BP 129/76
--- NOTE | 2016-11-11 16:58 | NUR ---
CALLED DR. MENDOZA REGARDING DVT PROPHOLAXIS FOR PATIENT. DR MENDOZA SAID IT IS OK TO WEAR SCDS.
--- NOTE | 2016-11-11 17:02 | NUR ---
PATIENT IS ALERT AND ORIENTED. NO C/O N/V. NO C/O PAIN CURRENTLY. WAS PASSED OFF IN REPORT THAT THE DR IS AWARE OF HER CURRENT LABS. HAS SCDS ON FOR DVT PREVENTION PER TVO FROM DR. MENDOZA.
[2016-11-11 18:08] VITALS: BP 127/74
[2016-11-11 22:32] VITALS: BP 137/78
--- NOTE | 2016-11-11 22:41 | NUR ---
IV TUBING CHANGED 11/10/16.
--- NOTE | 2016-11-11 23:27 | NUR ---
AMBULATING TO TOILET, DENIES NAUSEA/PAIN AT THIS TIME.
[2016-11-12 03:07] VITALS: BP 145/73
[2016-11-12 07:05] VITALS: BP 138/76
--- NOTE | 2016-11-12 07:24 | Progress Note ---
Subjective General Patient is feeling great. denies cp,abdominal pain, sob. Is with no concerns this am other than has some fear of surgery in general with prior hx. Is feeling fine. Physical Exam Vital Signs / I&Os Vital Signs Date Time Temp Pulse Resp B/P Pulse O2 O2 Flow FiO2 Ox Delivery Rate 11/12 0705 97.9 53 18 138/76 95 Room Air 11/12 0307 98.4 51 18 145/73 99 Nasal 4.0 Cannula 11/12 0010 Nasal 4.0 Cannula 11/11 2316 4.0 11/11 2232 98.2 59 16 137/78 96 Room Air 11/11 1808 98.2 51 18 127/74 98 Room Air 11/11 1559 4.0 11/11 1430 64 11/11 1425 98.6 56 18 129/76 95 Room Air 11/11 1052 98.2 59 18 132/74 97 Room Air 11/11 0855 95 Room Air 11/11 0835 Nasal 2.0 Cannula 11/11 0727 2.0 I&O 11/12 0000 11/11 1600 11/11 0800 Intake Total 1000 1073 282 Output Total 1800 350 25 Balance -800 723 257 General Appearance Alert, Cooperative, No acute distress Lungs Clear to auscultation, Normal air movement Cardiovascular Regular rate and rhythm, No murmurs, gallops, rubs Abdomen Soft, No tenderness, L lower abdomen with colostomy bag Extremities No edema LAB Results Laboratory Tests 11/12 0545 Chemistry Plasma Sodium (136 - 145 mmol/L) 140 Plasma Potassium (3.5 - 5.1 mmol/L) 3.8 Plasma Chloride (98 - 107 mmol/L) 107 CO2 (Enzymatic) (21 - 32 mmol/L) 24 BUN (7 - 18 mg/dL) 4 Creatinine (0.6 - 1.3 mg/dL) 0.8 Est GFR ( Amer) (mL/min) >60 Est GFR (Non-Af Amer) (mL/min) >60 Glucose (70 - 110 mg/dL) 122 Plasma Calcium (8.5 - 10.1 mg/dL) 8.2 Plasma Magnesium (1.8 - 2.4 mg/dL) 1.9 Total Bilirubin (0.0 - 1.0 mg/dL) 4.0 AST (15 - 37 U/L) 349 ALT (12 - 78 U/L) 263 Alkaline Phosphatase (46 - 116 U/L) 201 Total Protein (6.4 - 8.2 g/dL) 5.8 Albumin (3.3 - 5.0 g/dL) 2.4 Hematology WBC (4.5 - 11.5 K/uL) 5.2 RBC (4.00 - 5.20 M/uL) 3.73 Hgb (12.0 - 16.0 gm/dL) 11.8 Hct (36.0 - 46.0 %) 35.0 MCV (80 - 100 fL) 94 MCH (26 - 34 pg) 32 RDW (11.6 - 14.8 %) 14.4 Neut % (Auto) (50 - 75 %) 54.6 Lymph % (Auto) (25 - 40 %) 22.6 [place] % (Auto) (3 - 14 %) 11.6 Eos % (Auto) (0 - 4 %) 10.0 Baso % (Auto) (0 - 2 %) 1.2 Plt Count, EDTA (150 - 400 K/uL) 249 PUBS MCHC (31 - 37 g/dL) 34 Assessment and Plan Problem List 1. Gallstones Plan Gallstones and hx of pradaxa will be 48hrs this pm without med and ok for surgery then as indicated. 2. Biliary colic Plan Abnl LFTs that seem related to the cholecystitis.
[2016-11-12 10:23] VITALS: BP 179/90
[2016-11-12 15:16] VITALS: BP 176/98
--- NOTE | 2016-11-12 15:20 | NUR ---
NUTRITION ASSESSMENT: S: Pt admitted with dx/o gallstones, biliary colic. PMH includes: A fib, ischemic colitis. Pt scheduled for surgery likely tomorrow. Taking some clear liquids. O: Diet Rx: clear liquids, no carbonated beverages NKFA Wts: 58.6 kg Ht: 64" IBW: 56-62 kg BMI: 22.3 Est Kcals: ~8849-9961 kcals per day Est Pro: ~60-70 g per day Est Fluids: ~1800 mls per day Meds Incl: digoxin, IV abos, mag citrate, reglan, see emar for complete list/details. Labs Incl: (11/12) glucose 122, BUN 4, Na+ 140, K+ 3.8, ca+ 8.2, total pro 5.8, albumin 2.4, alk phos 201, ast 349, alt 263, HCT 35, HGB 11.8, MCV 94, MCH 32 Skin: Chapo Score 23, colostomy abodmen no open areas noted or reported A: Pt taking some clear liquids ~50%. Lap toño scheduled for tomorrow per MD. Rec slowly advance diet when medically appropriate. RD to follow up and monitor oral nutrition progress/nutrition indices prn/protocol. P: Advance diet when medically appropriate RD to follow up prn/protocol.
--- NOTE | 2016-11-12 16:46 | NUR ---
AT BEGINNING OF SHIFT PT WAS VERY UPSET AND NERVOUS ABOUT TOMORROWS SURGERY. STROKING STUFFED DOG ON BED, CRYING AND CURLED INTO BALL. SPOKE WITH PT ABOUT CONCERNS AND IT'S DUE TO COMPLICATIONS FROM LAST INTESTINAL SURGERY. ASKED ABOUT PETS AT HOME AND FAMILY FOR DISTRACTION AND PT CALMED DOWN. WILL GO IN AND CHAT LATER. ALL VSS, NO ABD PAIN OR SOB, OR NAUSEA. ENCOURAGED INTAKE OF FLUIDS AND OFFERED OTHER CHOICES. DENIES PAIN WITH URINATION. WCTM.
[2016-11-12 19:02] VITALS: BP 176/95
--- NOTE | 2016-11-12 19:13 | NUR ---
PT IS EXPERIENCING ELEVATED BP (176/95) RANGE. ALONG WITH ANXIETY. THIS RN CALLED MD SU AROUND 1900 TO NOTIFY OF STATUS. PRESCRIBED ATIVAN 0.5 MG 1X NOW FOR BP, HALCION 0.125 MG AT BEDTIME 1X. FAXED ORDER AND WILL PROVIDE AT APPROPRIATE TIMES. IF BP DOES NOT GO DOWN THEN THIS RN IS TO CALL TO SEE IF A BP MED IS NEEDED FOR PT. WCTM.
--- NOTE | 2016-11-12 19:39 | NUR ---
Patient ambulated 6 rounds in hallway and is now watching tv. lorazapam being administered and will monitor effects on BP.
--- NOTE | 2016-11-12 19:46 | NUR ---
I discussed with the patient their current medications, possible side effects, and answered questions.
--- NOTE | 2016-11-12 21:25 | NUR ---
Notified MD Valdes of pt's elevated BP and MD will add Lisinopril 10 mg to med list. Monitor throught night for status.
--- NOTE | 2016-11-12 22:08 | NUR ---
PT IS SLEEPING. WCTM.
[2016-11-12 22:16] VITALS: BP 163/67
--- NOTE | 2016-11-12 23:41 | NUR ---
SLEEPING, RESPIRATIONS 16, IVF INFUSING TO R HAND. NPO FOR SURGERY IN AM.
[2016-11-13] VITALS (11 sets, daily range): BP systolic 140–199; BP diastolic 73–106
--- NOTE | 2016-11-13 07:44 | Progress Note ---
Subjective General Patient states that she is still doing well no pain. BP is doing better on bp meds. Has been with surgery that is coming on. Physical Exam Vital Signs / I&Os Vital Signs Date Time Temp Pulse Resp B/P Pulse O2 O2 Flow FiO2 Ox Delivery Rate 11/13 0656 97.7 53 17 140/73 97 Nasal 2.0 Cannula 11/13 0519 2.0 11/13 0320 98.1 56 15 148/79 100 Nasal 4.0 Cannula 11/12 2216 97.9 60 16 163/67 98 Room Air 11/12 1902 97.7 58 16 176/95 99 11/12 1540 Room Air 98 11/12 1516 98.1 56 20 176/98 99 11/12 1302 58 11/12 1023 98.1 76 18 179/90 97 Room Air 11/12 0938 Room Air I&O 11/13 0000 11/12 1600 11/12 0800 Intake Total 2884 930 757 Output Total 1150 1450 800 Balance 1734 -520 -43 General Appearance Alert, Oriented X3 HEENT Atraumatic Lungs Clear to auscultation, Normal air movement Cardiovascular Regular rate and rhythm Abdomen Soft Extremities No edema LAB Results Laboratory Tests 11/13 518 Chemistry Plasma Sodium (136 - 145 mmol/L) 141 Plasma Potassium (3.5 - 5.1 mmol/L) 3.6 Plasma Chloride (98 - 107 mmol/L) 108 CO2 (Enzymatic) (21 - 32 mmol/L) 23 BUN (7 - 18 mg/dL) 2 Creatinine (0.6 - 1.3 mg/dL) 0.9 Est GFR ( Amer) (mL/min) >60 Est GFR (Non-Af Amer) (mL/min) >60 Glucose (70 - 110 mg/dL) 114 Plasma Calcium (8.5 - 10.1 mg/dL) 8.5 Plasma Magnesium (1.8 - 2.4 mg/dL) 2.0 Total Bilirubin (0.0 - 1.0 mg/dL) 1.3 AST (15 - 37 U/L) 192 ALT (12 - 78 U/L) 220 Alkaline Phosphatase (46 - 116 U/L) 196 Total Protein (6.4 - 8.2 g/dL) 6.5 Albumin (3.3 - 5.0 g/dL) 2.7 Hematology WBC (4.5 - 11.5 K/uL) 6.9 RBC (4.00 - 5.20 M/uL) 3.99 Hgb (12.0 - 16.0 gm/dL) 12.4 Hct (36.0 - 46.0 %) 37.9 MCV (80 - 100 fL) 95 MCH (26 - 34 pg) 31 RDW (11.6 - 14.8 %) 14.0 Neut % (Auto) (50 - 75 %) 59.6 Lymph % (Auto) (25 - 40 %) 17.6 [place] % (Auto) (3 - 14 %) 11.9 Eos % (Auto) (0 - 4 %) 9.3 Baso % (Auto) (0 - 2 %) 1.6 Plt Count, EDTA (150 - 400 K/uL) 283 PUBS MCHC (31 - 37 g/dL) 33 Assessment and Plan Problem List 1. Biliary colic Plan Has been doing ok, has no pain surgery today 2. Gallstones Plan plan for surgery today
--- NOTE | 2016-11-13 07:51 | NUR ---
PATIENT RESTING IN BED AND DAUGHTERS AT BEDSIDE. DENIES PAIN. COLOSTOMY INTACT AND PATIENT STATES SHE CARES FOR HERSELF AND HAS HAD FOR 3 YEARS WITH NO PLAN TO TAKE DOWN AT THIS POINT. AMBULATORY IN ROOM. SEE SHIFT ASSESSMENT FOR FURTHER DETAILS.
--- NOTE | 2016-11-13 12:55 | NUR ---
PATIENT OFF FLOOR TO OR AT 1250.
--- NOTE | 2016-11-13 15:18 | DIAGNOSTIC IMAGING REPORT ---
PROCEDURE: XR INTRAOPERATIVE LAP KARLO INDICATION: IOC-- CBDE TECHNIQUE: Intraoperative fluoroscopy provided for Dr. Hastings performing an intraoperative cholangiogram following cholecystectomy. Total fluoroscopy time 15 seconds. Cumulative dose 2.2 mGy. COMPARISON: Ultrasound 11/11/2016 FINDINGS: Two intraoperative fluoroscopic spot images of the right upper quadrant of the abdomen demonstrate cannulation of the cystic duct stump and opacification of the intrahepatic and extrahepatic biliary tree. There are no filling defects. There is normal passage of contrast into the duodenum. IMPRESSION: 1. Negative intraoperative cholangiogram.
--- NOTE | 2016-11-13 15:25 | NUR ---
PATIENT ARRIVED TO PACU AT 1520. SPONT RESP. AROUSABLE. ABDOMEN SOFT, WITH CLEAN, DRY DRESSINGS IN PLACE. DENIES PAIN AND NAUSEA AT THIS TIME. PATIENT HYPERTENSIVE, BUT VITALS OTHERWISE STABLE. WILL CONTINUE TO MONITOR.
--- NOTE | 2016-11-13 15:52 | NUR ---
PATIENT'S VITALS STABLE. CONTINUES TO DENY PAIN/NAUSEA. WILL CONTINUE TO MONITOR.
--- NOTE | 2016-11-13 16:12 | NUR ---
NUTRITION FOLLOW UP NOTE: Pt s/p lap toño today, clear liquid ordered for post op. Anticipate diet advancement tomorrow post op day 1. Will continue to monitor nutrition indices and follow up prn/protocol.
--- NOTE | 2016-11-13 16:22 | OPERATIVE REPORT ---
DATE OF SURGERY: 11/13/2016 SURGEON: Dionisio Hastings III, MD BILLIARD PARLOR MANAGER: Eagle Good MD PREOPERATIVE DIAGNOSES: 1. Subacute cholecystitis 2. Cholelithiasis 3. Possible choledocholithiasis POSTOPERATIVE DIAGNOSES: 1. Subacute cholecystitis 2. Cholelithiasis 3. Normal intraoperative cholangiogram 4. Intraabdominal adhesions PROCEDURES PERFORMED: 1. Laparoscopic lysis of anterior abdominal wall adhesions 2. Cholecystectomy 3. Fluoroscopic intraoperative cholangiogram under fluoroscopy ANESTHESIA: General endotracheal. ESTIMATED BLOOD LOSS: Minimal. FLUIDS: 1300 mL lactated Ringer's. PATHOLOGY SPECIMEN: Gallbladder and contents. INDICATIONS: The patient is a 61-year-old female who presented to the emergency department with progressive, severe epigastric abdominal pain, nonradiating, localized. The patient has had a history of possible gallbladder problems in the past, including a HIDA scan which showed dyskinesia of her gallbladder. The patient has an extensive surgical history, having undergone open laparotomy, resection of the distal portion of her transverse colon, descending colon, sigmoid colon, and portion of her rectum. Also, had a portion of her small bowel removed, with anastomosis, eventually to have exploratory laparotomy, lysis of adhesions and closure of enteric leak. During her hospitalization, her admission total bilirubin was 0.9. The following morning it bumped to 1.5, and then the following day bumped to 4.0. The patient was on Pradaxa, and after 48 hours scheduled for surgery. SURGICAL FINDINGS: The patient was noted to have adhesions to the right upper quadrant and right upper midline from previous surgery. The patient had a distended floppy gallbladder with a generous cystic duct, a normal fluoroscopic intraoperative cholangiogram with free flow of contrast material into the duodenum, with visualization of hepatic radicles, hepatic duct, and common bile duct. No evidence of retained stone. SURGICAL TECHNIQUE: The patient was brought to the operating room and placed in the dorsal supine position where she underwent general endotracheal anesthesia by the anesthesia department. After proper anesthesia had taken effect, the patient's colostomy was draped off and isolated. The remaining abdomen was then prepped with Betadine and draped in a sterile fashion. A small incision was made in the right anterolateral abdominal wall on the costal margin. This incision was carried down through skin and subcutaneous tissue. Using a small hemostat, we were able to separate the muscles and place a finger in the peritoneal cavity, where adhesions to the abdominal wall were taken down bluntly. Giving ourselves enough space, we were able to place a blunt trocar and a 5 mm laparoscopic video camera at this site and very carefully break adhesions to the anterior abdominal wall, up to the area of the falciform ligament in the upper abdomen. It was at this site that we were able then to place a 10 mm trocar under direct visualization. The trocar removed, leaving the sleeve behind, through which a laparoscopic 10 mm video camera was introduced in the abdominal cavity. Examination of the right lower quadrant revealed no adhesions. We were able then to pass a 5 mm trocar at this site under direct visualization removing the trocars, leaving the sleeve behind. It was through these 2 ports that we were able to take down adhesions to the right upper and right mid abdomen to facilitate placing our second 10 mm trocar. It should be noted that this took at least half the time of the total surgery. Once we had cleared off adhesions, and only the adhesions that contained omentum and not small bowel, we were able to place a 10 mm trocar just to the right, in the upper mid abdomen. It entered the abdominal cavity under direct visualization. The trocar was removed, leaving the sleeve behind, and it was through this site that we placed our laparoscopic video camera. We were then able to identify the right upper quadrant, and adhesions to the right lobe of the liver and the gallbladder were taken down using electrocautery dissection. Once we were able to visualize the gallbladder, it was retracted cephalad, and then very carefully we were able to circumferentially isolate the cystic duct using a combination of blunt dissection and electrocautery. A clip was placed at the junction of the neck of the gallbladder and the cystic duct. A small incision was made in the anterior surface of the cystic duct. A percutaneous cholangiogram catheter was threaded through the anterior abdominal wall, into the cystic duct, clipped into position, and a fluoroscopic intraoperative cholangiogram obtained with the aforementioned findings noted. Once completed, the percutaneous cholangiogram catheter was retrieved from the cystic duct and the abdominal cavity. The distal cystic duct was clipped in continuity. The cystic duct was then transected using EndoShears. The cystic artery was clipped in continuity and divided. The gallbladder was taken down from its bed in a retrograde fashion using electrocautery dissection. Once completely freed from its bed, it was placed in a sterile specimen container bag and retrieved from the abdominal cavity and handed off the field and sent to pathology. The right upper quadrant was inspected for hemostasis, irrigated copiously with warm normal saline, and the irrigant suctioned out. Hemostasis was assured. The pneumoperitoneum was released, and all trocars were removed from the abdominal cavity. All trocar sites were approximated using 4-0 subdermal Polysorb and Steri- Strips. Sterile occlusive dressings was placed over each site. The patient tolerated the procedure well. The patient was then extubated and transferred to the recovery room in stable condition. There were no intraoperative or anesthetic complications.
--- NOTE | 2016-11-13 16:52 | NUR ---
PT ARRIVED FROM PACU AROUND 1610 VIA GURNEY. LOW PAIN FELT, TROCHAR SITES CDI, ON 2L O2 FOR PT'S ANXIETY. SATS IN HIGH 90'S. LUNGS ARE CLEAR, HEART RATE ELEVATED AND BLOOD PRESSURE REMAINS IN HIGH 190'S. ASKED PT TO REFRAIN FROM MOANING AND FOCUS ON BREATHING. PAIN IS NOW 6/10 AND 12.5 DEMEROL GIVEN. PT AMBULATED TO BATHROOM 2 PERSON ASSIST WITH SOME NAUSEA BUT TOLERATED WELL. MONITORING CLOSELY.
--- NOTE | 2016-11-13 19:18 | NUR ---
PT'S ANXIETY HAS DECREASED, AMBULATED IN HALLWAY 3 LAPS WITHOUT ISSUE. LISINOPRIL 10 MG HAS BEEN GIVEN WITH DESCRIPTION OF SIDE EFFECTS TO REPORT. AND DAUGHTER ARE VISITING AND HELPS TO LIFT SPIRITS. WILL MONITOR BP.
--- NOTE | 2016-11-13 20:08 | NUR ---
I discussed with the patient their current medications, possible side effects, and answered questions.
--- NOTE | 2016-11-13 20:44 | NUR ---
PT IS AMBULATING IN HALLWAY WITHOUT ISSUE. TOLERATING CLEAR LIQUIDS WELL. WILL PROVIDE APPLESAUCE AND MONITOR.
--- NOTE | 2016-11-13 23:29 | NUR ---
AMBULATING IN HALLWAY, STATES ABDOMINAL DISCOMFORT 2/, DENIES NAUSEA AT THIS TIME. TOLERATED APPLESAUCE.
[2016-11-14 02:00] VITALS: BP 136/77
--- NOTE | 2016-11-14 05:59 | NUR ---
AMBULATING Q 2 HOURS, PRN PAIN MEDS X 1 THIS SHIFT. TROCAR SITES DRESSINGS CDI. PASSING GAS PER COLOSTOMY, VERBALIZED BURPING. TOLERATED CLEAR LIQUIDS AND APPLESAUCE, DIET ADVANCE TO FULL LIQUIDS.
[2016-11-14] MEDS ORDERED: HYCET1 ML PO (06:09)
--- NOTE | 2016-11-14 06:10 | Provider's Discharge Care Plan ---
Problem, Goal, Plan Problem List 1. S/P laparoscopic cholecystectomy Goals: Improve disease control, Therapeutic intervention Instructions: Follow up as directed, Take meds as directed
--- NOTE | 2016-11-14 06:10 | Provider's Discharge Care Plan ---
Problem, Goal, Plan Problem List 1. S/P laparoscopic cholecystectomy Goals: Improve disease control, Therapeutic intervention Instructions: Follow up as directed, Take meds as directed
[2016-11-14 06:58] VITALS: BP 153/80
--- NOTE | 2016-11-14 07:20 | DISCHARGE SUMMARY ---
ADMIT DATE: 11/11/2016 DISCHARGE DATE: 11/14/2016 ADMITTING DIAGNOSIS: 1. Abdominal pain DISCHARGE DIAGNOSIS: 1. Symptomatic cholelithiasis PROCEDURES PERFORMED: 1. Laparoscopic lysis of intra-abdominal adhesions 2. Laparoscopic cholecystectomy 3. Fluoroscopic intraoperative cholangiogram BRIEF HISTORY: The patient is a 61-year-old female who was admitted via the emergency department after presenting with 1-1/2 day history of epigastric abdominal pain. While in the emergency department, a study showed shadowing layering of sludge or gallstones. Her white count on admission was 9.5 and her total bilirubin was 0.9. HOSPITAL COURSE: She was admitted for a further diagnostic study. The following day, her total bilirubin bumped to 1.5 on admission. Her INR was 1.1 and her PTT was 51. The patient is on chronic Pradaxa. The patient also has an extensive history of abdominal surgeries. The patient, during her hospitalization, was treated conservatively. Her total bilirubin bumped to 4.0. Thinking she had passed a small stone in her common duct, she was scheduled for surgery. On the day of surgery, her white count was 6.9, hemoglobin and hematocrit 12.4 and 37.9 respectively with a total bilirubin that was still elevated, but down to 1.3. The patient was taken to the operating room on 11/13/2016 where she underwent laparoscopic lysis of abdominal adhesions, cholecystectomy, and fluoroscopic intraoperative cholangiogram and no evidence of retained stone, passage of contrast material into the duodenum with visualization of hepatic radicles, hepatic duct, and common bile duct. Postoperative course was unremarkable. She remained stable and was discharged home on postoperative day one. Condition at time of discharge, ambulating, voiding. Her colostomy was functioning. No nausea, no vomiting. No shortness of breath. Her white count was 10.7, hemoglobin and hematocrit 11.6 and 35.0 respectively. DISCHARGE INSTRUCTIONS/MEDICATIONS: She was discharged home to resume her home medications, which included her digoxin 0.25 mg daily, Pradaxa 150 mg b.i.d., Hycet elixir 1 tablespoon 6 hours p.r.n. pain. Wound care instructions were given and she will follow up with [facility] in 1 week.
[2016-11-14] MEDS ORDERED: LISINOPRIL10 MG PO (07:25)
--- NOTE | 2016-11-14 07:26 | Provider's Discharge Care Plan ---
Problem, Goal, Plan Problem List 1. S/P laparoscopic cholecystectomy 2. Hypertension Instructions: Take meds as directed, 1-2 weeks f/u
--- NOTE | 2016-11-14 07:26 | Provider's Discharge Care Plan ---
Problem, Goal, Plan Problem List 1. S/P laparoscopic cholecystectomy 2. Hypertension Instructions: Take meds as directed, 1-2 weeks f/u
--- NOTE | 2016-11-14 07:32 | Progress Note ---
Subjective General Patient states that she is doing better. Likes the lisinopril bring down her BP that makes her nervous. Is feeling pretty well at this time. Physical Exam Vital Signs / I&Os Vital Signs Date Time Temp Pulse Resp B/P Pulse O2 O2 Flow FiO2 Ox Delivery Rate 11/14 0658 98.8 60 18 153/80 97 Room Air 0.0 11/14 0200 98.4 64 18 136/77 95 Room Air 11/13 1945 97.5 63 20 170/86 97 Room Air 11/13 1845 97.3 74 20 158/92 97 Nasal 2.0 Cannula 11/13 1815 97.9 66 20 168/97 100 Nasal 2.0 Cannula 11/13 1745 97.9 92 20 177/106 99 Nasal 2.0 Cannula 11/13 1728 2.0 11/13 1715 98.1 59 20 182/89 100 Nasal 2.0 Cannula 11/13 1700 97.5 53 20 184/91 100 Nasal 2.0 Cannula 11/13 1645 97.5 59 20 199/94 98 Nasal 2.0 Cannula 11/13 1620 97.9 52 20 170/81 97 Nasal 2.0 Cannula 11/13 1600 97.0 52 10 160/68 100 11/13 1555 54 14 155/68 100 Nasal 2.0 Cannula 11/13 1550 54 14 157/69 100 11/13 1545 56 15 154/68 100 11/13 1540 62 16 155/77 97 11/13 1535 80 15 160/77 100 11/13 1530 86 17 175/81 100 11/13 1525 100 20 191/88 99 11/13 1520 98.1 111 21 203/96 98 Mask 8.0 11/13 1011 98.1 58 18 155/85 99 Nasal 2.0 Cannula 11/13 0758 2.0 I&O 11/14 0000 11/13 1600 11/13 0800 Intake Total 120 2980 907 Output Total 2150 1525 700 Balance -2030 1455 207 General Appearance Alert, Cooperative Lungs Clear to auscultation, Normal air movement Cardiovascular Regular rate and rhythm Abdomen Soft, appropriate post op LAB Results Laboratory Tests 11/14 0524 Chemistry Plasma Sodium (136 - 145 mmol/L) 137 Plasma Potassium (3.5 - 5.1 mmol/L) 3.5 Plasma Chloride (98 - 107 mmol/L) 103 CO2 (Enzymatic) (21 - 32 mmol/L) 26 BUN (7 - 18 mg/dL) 5 Creatinine (0.6 - 1.3 mg/dL) 0.9 Est GFR ( Amer) (mL/min) >60 Est GFR (Non-Af Amer) (mL/min) >60 Glucose (70 - 110 mg/dL) 91 Plasma Calcium (8.5 - 10.1 mg/dL) 8.6 Total Bilirubin (0.0 - 1.0 mg/dL) 1.0 AST (15 - 37 U/L) 114 ALT (12 - 78 U/L) 164 Alkaline Phosphatase (46 - 116 U/L) 160 Total Protein (6.4 - 8.2 g/dL) 6.2 Albumin (3.3 - 5.0 g/dL) 2.5 Hematology WBC (4.5 - 11.5 K/uL) 10.7 RBC (4.00 - 5.20 M/uL) 3.75 Hgb (12.0 - 16.0 gm/dL) 11.6 Hct (36.0 - 46.0 %) 35.0 MCV (80 - 100 fL) 93 MCH (26 - 34 pg) 31 RDW (11.6 - 14.8 %) 13.8 Neut % (Auto) (50 - 75 %) 74.1 Lymph % (Auto) (25 - 40 %) 12.4 [place] % (Auto) (3 - 14 %) 12.8 Eos % (Auto) (0 - 4 %) 0.5 Baso % (Auto) (0 - 2 %) 0.2 Plt Count, EDTA (150 - 400 K/uL) 294 PUBS MCHC (31 - 37 g/dL) 33 Assessment and Plan Problem List 1. Hypertension Plan start on lisinopril last pm. Doing well. f/u as out patient. get CMP in follow up. STart on pradaxa today. d/c per surgery today. 2. Gallstones Status Resolved 3. Biliary colic Status Resolved Plan Is with abnl LFTs better.
--- NOTE | 2016-11-14 10:10 | NUR ---
PT OOB AMBULATING THE HALLWAY PER MD ORDERS AND OOB IN A CHAIR FOR BREAKFAST. NO S/S OF NAUSEA AND VOMITING. TROCAR SITES TO THE ABD CDI. WENT OVER DC INSTRUCTIONS, GAVE PRESCRIPTIONS AND EDUCATION ON CURRENT DIAGNOSIS. PT STATED UNDERSTANDING. ESCORTED OUT VIA WC TO PRIVATE CAR HOME.
== END 2016-11-14 10:00 | disposition home or self-care (01) ==
LOC: ED SRH 22:26 → TRANS SRH 11-11 01:57 → ACUTE2 SRH 11-11 01:57
PROVIDERS: ADMIT Specialist
PROC: BF101ZZ Fluoroscopy of Bile Ducts using Low Osmolar Contrast (ICD-10-PCS; principal; 2016-11-13 11:45)
PROC: 0DNS4ZZ (ICD-10-PCS; principal; 2016-11-13 11:45)
PROC: 0FT44ZZ Resection of Gallbladder, Percutaneous Endoscopic Approach (ICD-10-PCS; principal; 2016-11-13 11:45)
DX: K80.00 Calculus of gallbladder with acute cholecystitis without obstruction (principal); R11.0 Nausea; K66.0 Peritoneal adhesions (postprocedural) (postinfection); Z93.3 Colostomy status; I48.91 Unspecified atrial fibrillation; Z79.01 Long term (current) use of anticoagulants; Z90.49 Acquired absence of other specified parts of digestive tract; F41.9 Anxiety disorder, unspecified; I10 Essential (primary) hypertension
CPT/HCPCS: 29229; 29230; 29242; 29243; 29244; 29247; 29250; 29260; 29263; 29264; 50002; 60001; 70002; 80102; 80212; 80248; 82669; 82794; 82807; 83338; 83339; 83348; 83587; 83920; 83937; 83982; 84038; 90004; 90074; 90100; 90469; 92235; 92520; 92530; 92540; 92720; 93020; 94001; 94060; 95059